=== PATIENT | female | born 2000 | race Hispanic/Latino ===

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

== ENCOUNTER 2022-07-29 15:40 | Emergency (ER) | payer OTHER, MEDICAID, SELFPAY ==
[2022-07-29 16:15] VITALS: BP 131/92; PULSE 106; RESP 20; TEMP 36.1; O2SAT 98; BMI 24.7
[2022-07-29 17:15] LABS: COVID19 -Nasal RAPID Negative (Negative)
[2022-07-29] MEDS: AMOXICILLIN 250 MG CAPSULE 1000 MG PO (19:25)
[2022-07-29] MEDS: KETOROLAC 10 MG TABLET PO (19:25)
[2022-07-29 19:42] VITALS: BP 127/76; PULSE 86; RESP 18; O2SAT 99
--- NOTE | 2022-07-29 20:32 | ED.URI ---
HPI - URI/Sore Throat <JOSH Manrique - Last Filed: 07/29/22 20:37> General Chief Complaint: Upper Respiratory Symptoms Stated Complaint: Sick for the past 3 days, Chest pains, SOB, Dizzy Time Seen by Provider: 07/29/22 18:49 Source: patient Mode of arrival: Family Vehicle History of Present Illness HPI Narrative: This is a 21-year-old female presents to the emergency department with bilateral ear pain, congestion, states that she feels lightheaded and unwell. 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 She denies nausea vomiting. She states that she is had Tylenol for her pain and occasional ibuprofen. Related Data Previous Rx's Medication Instructions Recorded cetirizine 10 mg tablet 10 mg PO DAILY congestion #20 tabs 07/29/22 fluticasone furoate 27.5 2 spray intranasal DAILY PRN nasal 07/29/22 mcg/actuation nasal congestion #5.9 mL spray,suspension Allergies Allergy/AdvReac Type Severity Reaction Status Date / Time No Known Drug Allergies Allergy Verified 07/29/22 16:33 Review of Systems <JOSH Manrique - Last Filed: 07/29/22 20:37> Review of Systems Narrative: Review of systems is negative for acute abnormalities unless otherwise noted in HPI Patient History <JOSH Manrique - Last Filed: 07/29/22 20:37> Medical History Healthy adolescent Social History Smoking Status: Never smoker Smoking Status: Never smoker alcohol intake frequency: 0-2 drinks per day Substance Use Type: does not use Exam <JOSH Manrique - Last Filed: 07/29/22 20:37> Narrative Exam Narrative: Reviewed vitals signs and nursing notes. General: cooperative, comfortable, in no acute distress, well groomed HEENT: symmetrical facial expressions, moist mucous membranes, bilateral TMs are bulging, erythema is present in bilateral upper TMs with mildly opaque fluid behind, no erythema of canal or discharge present in the ear canal. No tenderness with exam. Cardiovascular: regular rate and rhythm, no peripheral edema, warm extremities Respiratory: normal effort, able to speak in complete sentences, without wheezing, stridor, or abnormal breath sounds. No retractions or tachypnea. Breath sounds are clear throughout all ambrose GI: abdomen soft, nontender to palpation, nondistended, without masses, rebound tenderness or exquisite tenderness with exam. MSK: moves all extremities, neurovascularly intact, no weakness, normal tone Skin: brisk capillary refill, without pallor or erythema Neuro: normal speech and cognition, A&O x3, ambulatory, clear speech Psych: mental status is grossly normal, congruent mood, normal affect, pleasant and cooperative Initial Vital Signs Initial Vital Signs: Vital Signs Temperature 97.0 F L 07/29/22 16:15 Pulse Rate 106 H 07/29/22 16:15 Respiratory Rate 20 07/29/22 16:15 Blood Pressure 131/92 H 07/29/22 16:15 Pulse Oximetry 98 07/29/22 16:15 Oxygen Delivery Method 07/29/22 16:15 <Camilla Andrade DO - Last Filed: 08/03/22 07:27> Initial Vital Signs Initial Vital Signs: Vital Signs Temperature 97.0 F L 07/29/22 16:15 Pulse Rate 106 H 07/29/22 16:15 Respiratory Rate 20 07/29/22 16:15 Blood Pressure 131/92 H 07/29/22 16:15 Pulse Oximetry 98 07/29/22 16:15 Oxygen Delivery Method 07/29/22 16:15 Course <JOSH Manrique - Last Filed: 07/29/22 20:37> Orders Ordered: Discontinued Medications Amoxicillin (Amoxicillin 250 Mg Capsule) 1,000 mg PO NOW ONE Stop: 07/29/22 18:56 Last Admin: 07/29/22 19:25 Dose: 1,000 mg Documented By: VERNA Ketorolac Tromethamine (Ketorolac 10 Mg Tablet) 10 mg PO NOW ONE Stop: 07/29/22 18:56 Last Admin: 07/29/22 19:25 Dose: 10 mg Documented By: VERNA Vital Signs Vital signs: Vital Signs - 8 hr 07/29/22 16:15 07/29/22 19:42 Temperature 97.0 F L Pulse Rate 106 H 86 Respiratory Rate 20 18 Blood Pressure 131/92 H 127/76 Pulse Oximetry 98 99 Oxygen Delivery Method Room Air Room Air <Camilla Andrade DO - Last Filed: 08/03/22 07:27> Orders Ordered: Discontinued Medications Amoxicillin (Amoxicillin 250 Mg Capsule) 1,000 mg PO NOW ONE Stop: 07/29/22 18:56 Last Admin: 07/29/22 19:25 Dose: 1,000 mg Documented By: VERNA Ketorolac Tromethamine (Ketorolac 10 Mg Tablet) 10 mg PO NOW ONE Stop: 07/29/22 18:56 Last Admin: 07/29/22 19:25 Dose: 10 mg Documented By: VERNA Vital Signs Vital signs: Vital Signs - 8 hr 07/29/22 16:15 07/29/22 19:42 Temperature 97.0 F L Pulse Rate 106 H 86 Respiratory Rate 20 18 Blood Pressure 131/92 H 127/76 Pulse Oximetry 98 99 Oxygen Delivery Method Room Air Room Air MDM - URI/Sore Throat <JOSH Manrique - Last Filed: 07/29/22 20:37> Lab Data Labs: Lab Results 07/29/22 Range/Units 16:38 SARS-CoV-2 (PCR) Negative (Negative) MDM Narrative Medical decision making narrative: This is a 21-year-old female presents to the emergency department with 3 days of congestion, now with bilateral ear pain, a cough and sore throat. Her COVID PCR was negative, on exam bilateral TMs have erythema in 11:00 to 2:00 region, TMs were bulging with opaque fluid behind TM. This is suspicious for acute otitis media. Differential includes viral upper respiratory infection, eustachian tube dysfunction, serous otitis media. Encourage patient to follow-up with her primary care provider if this does not improve, she was prescribed amoxicillin today for acute otitis media with pain when she chews and open and closes her mouth. She was also given Zyrtec and Flonase to use for her congestion and other symptoms. Patient is appropriate and amenable to discharge home. Vital signs are stable on repeat examination is unremarkable. Patient has been informed of results. Patient has been given strict return to ER precautions for any new or worsening symptoms. Patient understands to follow up closely with outpatient providers as instructed. Patient understands plan and agrees to discharge home. All questions and concerns answered at this time. <Camilla Raymond, DO - Last Filed: 08/03/22 07:27> Lab Data Labs: Lab Results 07/29/22 Range/Units 16:38 SARS-CoV-2 (PCR) Negative (Negative) Discharge Plan Departure Patient Disposition: Home Clinical Impression: Upper respiratory infection Qualifiers: URI type: unspecified URI Qualified Code(s): J06.9 - Acute upper respiratory infection, unspecified Acute otitis media Qualifiers: Otitis media type: serous Laterality: bilateral Recurrence: non-recurrent Qualified Code(s): H65.03 - Acute serous otitis media, bilateral Instructions: Middle Ear Infection, Common Cold Activity Restrictions/Additional Instructions: *You have been diagnosed with acute otitis/middle ear infection which is just starting. Please take this antibiotic twice a day for the next 5 days, please take Tylenol and ibuprofen as needed for your pain, take Zyrtec at nighttime to help you with your congestion. Drink plenty of water, take your medications with food and water, and return to the emergency department for worsening, if you have fever and chills, or if anything gets worse. Your COVID test today was negative. If you have fever and chills and this progresses it is most likely a viral illness which is also causing your ear pain. Please schedule follow-up with your primary care provider if you are not better in a week or if you have any worsening. Thank you for coming in for evaluation I hope you feel better soon. *What to do: *Please continue to take your regular medications as directed. [x] New medication prescriptions sent to your pharmacy: [ [facility]] [ ] New medication written as a paper prescription [ ] No new medications given *Please follow up with your primary care provider in 2-3 days, call for an appointment. Let them know you were seen in the Emergency Department and that we asked that you be seen for follow-up. We will electronically transmit a record of today's note if your PCP is in our system *If you do not have a primary care provider please contact [phone] to establish care with one of the [facility] primary care providers. *Return to Emergency Department if you should have any new, worsening, or concerning symptoms, such as [fever greater than 101F, chills, worsening pain, persistent vomiting or other bothersome symptoms]. Prescriptions: New cetirizine 10 mg tablet 10 mg PO DAILY Qty: 20 0RF fluticasone furoate 27.5 mcg/actuation spray,suspension 2 spray intranasal DAILY PRN (Reason: nasal congestion) Qty: 5.9 0RF Rx Instructions: into each nostril Visit Report Forms: Patient Portal/API <Camilla Andrade DO - Last Filed: 08/03/22 07:27> Cosign ED Attending Cosgeorgeature Attestation: I was immediately available in the department for consultation. Documentation has been reviewed. I agree with assessment and plan.
== END 2022-07-29 19:43 | disposition home or self-care (01) ==
PROVIDERS: Emergency Medicine; Emergency Provider Nurse Practitioner Critical Care Medicine
DX: J06.9 Acute upper respiratory infection, unspecified (principal); H65.03 Acute serous otitis media, bilateral; Z20.822 Contact with and (suspected) exposure to COVID-19
CPT/HCPCS: 87635; 99283; C9803

== ENCOUNTER 2024-02-17 18:58 | Emergency (ER) | payer OTHER, MEDICAID, SELFPAY ==
[2024-02-17 19:01] VITALS: BP 131/76; PULSE 94; RESP 18; TEMP 36.6; O2SAT 100; BMI 27.5
[2024-02-17 19:40] LABS: Strep Grp A by PCR Rapid Negative (Negative)
[2024-02-17 20:00] LABS: Influenza A - CEPHEID Flu A NEGATIVE (NEGATIVE); Influenza B - CEPHEID Flu B NEGATIVE (NEGATIVE); Respiratory Syncytial Virus Negative (Negative)
[2024-02-17 20:05] LABS: COVID-19 CEPHEID 4-PLEX PCR Negative (Negative)
--- NOTE | 2024-02-17 20:13 | DI.RAD.S_ITS ---
PROCEDURE: XR CHEST 1V INDICATIONS: 1 wk cough, fever TECHNIQUE: One view of the chest was acquired. COMPARISON: None. FINDINGS: Surgical changes and devices: None. Lungs and pleura: An incomplete inspiratory result is noted, causing a crowded appearance to the lung markings. No focal infiltrates are seen. Generalized interstitial prominence can be seen. No pneumothorax or significant pleural effusions are seen. Mediastinum: Mediastinal contours appear normal. Heart size is normal. Bones and chest wall: No suspicious bony lesions. Overlying soft tissues appear unremarkable. IMPRESSION: Low lung volumes with generalized interstitial prominence can be seen. Please consider atypical infiltrate versus artifact. Pulmonary edema is possible, yet considered to be less likely. Dictated by: Sang Tidwell M.D. on 02/17/2024 at 19:39 Approved by: Sang Tidwell M.D. on 02/17/2024 at 19:39
--- NOTE | 2024-02-17 20:57 | ED.URI ---
HPI - URI/Sore Throat General Chief Complaint: Upper Respiratory Symptoms Stated Complaint: cough T-7/fever and chills/lt ear inf Time Seen by Provider: 02/17/24 20:13 Source: patient Mode of arrival: Ambulatory History of Present Illness HPI Narrative: 23yoF presents for nonproductive cough x 7 days. Reports associated fevers and chills, no measured temperature at home. Symptoms began with left ear pain, hwoever patient has not had ear pain in several days. Patient states she coughs so hard she sometimes vomits. Has tried OTC cough medications without significant relief. Denies chest pain or shortness of breath. Related Data Previous Rx's Medication Instructions Recorded cetirizine 10 mg tablet 10 mg PO DAILY congestion #20 tabs 07/29/22 fluticasone furoate 27.5 2 spray intranasal DAILY PRN nasal 07/29/22 mcg/actuation nasal congestion #5.9 mL spray,suspension benzonatate 200 mg capsule 200 mg PO BID-TID PRN cough #30 02/17/24 caps Allergies Allergy/AdvReac Type Severity Reaction Status Date / Time No Known Drug Allergies Allergy Verified 07/29/22 16:33 Review of Systems Review of Systems Narrative: Negative except as noted above Patient History Medical History Healthy adolescent Social History Smoking Status: Never smoker Smoking Status: Never smoker alcohol intake frequency: 0-2 drinks per day Substance Use Type: does not use Exam Initial Vital Signs Initial Vital Signs: Vital Signs Temperature 98 F 02/17/24 19:01 Pulse Rate 94 H 02/17/24 19:01 Respiratory Rate 18 02/17/24 19:01 Blood Pressure 131/76 02/17/24 19:01 Pulse Oximetry 100 02/17/24 19:01 Oxygen Delivery Method Room Air 02/17/24 19:01 Const: Awake, alert, no acute distress, nontoxic appearing Cardiac: regular rate, regular rhythm RESP: unlabored, clear bilaterally, no wheezing Skin: Warm, Dry, intact, no rashes Neuro: AO x3, CN II-XII grossly intact, moves all extremities Course Orders Ordered: Discontinued Medications Benzonatate (Benzonatate 100 Mg Capsule) 200 mg PO NOW ONE Stop: 02/17/24 20:59 Last Admin: 02/17/24 21:06 Dose: 200 mg Documented By: AKOSUA Dexamethasone (Dexamethasone 10 Mg/Ml Vial) 10 mg PO NOW ONE Stop: 02/17/24 20:59 Last Admin: 02/17/24 21:06 Dose: 10 mg Documented By: AKOSUA Vital Signs Vital signs: Vital Signs - 8 hr 02/17/24 19:01 Temperature 98 F Pulse Rate 94 H Respiratory Rate 18 Blood Pressure 131/76 Pulse Oximetry 100 Oxygen Delivery Method Room Air MDM - URI/Sore Throat Differential Diagnosis Differential diagnosis: Likely upper respiratory infection, croup and otitis media Lab Data Labs: Lab Results 02/17/24 Range/Units 19:10 SARS-CoV-2 (PCR) Negative (Negative) Influenza A (RT-PCR) Flu a negative (NEGATIVE) Influenza B (RT-PCR) Flu b negative (NEGATIVE) RSV (PCR) Negative (Negative) Group A Strep (PCR) Negative (Negative) Imaging Data Chest x-ray: Radiologist's Impression: PROCEDURE: XR CHEST 1V INDICATIONS: 1 wk cough, fever TECHNIQUE: One view of the chest was acquired. COMPARISON: None. FINDINGS: Surgical changes and devices: None. Lungs and pleura: An incomplete inspiratory result is noted, causing a crowded appearance to the lung markings. No focal infiltrates are seen. Generalized interstitial prominence can be seen. No pneumothorax or significant pleural effusions are seen. Mediastinum: Mediastinal contours appear normal. Heart size is normal. Bones and chest wall: No suspicious bony lesions. Overlying soft tissues appear unremarkable. IMPRESSION: Low lung volumes with generalized interstitial prominence can be seen. Please consider atypical infiltrate versus artifact. Pulmonary edema is possible, yet considered to be less likely. Dictated by: Sang Tidwell M.D. on 02/17/2024 at 19:39 Approved by: Sang Tidwell M.D. on 02/17/2024 at 19:39 [facility] Narrative Medical decision making narrative: Well-appearing patient with persistent cough after viral symptoms. Likely bronchitis. Lungs are clear to auscultation bilaterally, patient states her primary concern is her persistent cough. Flu, COVID, RSV negative. Chest x-ray read as ?low lung volumes with generalized interstitial prominence. Please consider atypical infiltrate versus artifact?. Patient is afebrile, lungs are clear bilaterally, suspect secondary to poor inspiratory effort. Low suspicion for bacterial process at this time. Patient given dose of Decadron and discharged with Silvana Nelson. Patient requested a note for work, which was provided. Discharge Plan Departure Patient Disposition: Home Clinical Impression: Bronchitis Instructions: DI for Acute Bronchitis Activity Restrictions/Additional Instructions: Drink plenty of fluids, get rest, and take the prescribed cough medications as needed for symptoms. Your lungs today are clear when I listen to them. Unfortunately there is no quick fix for bronchitis Prescriptions: New benzonatate 200 mg capsule 200 mg PO BID-TID PRN (Reason: cough) Qty: 30 0RF No Action cetirizine 10 mg tablet 10 mg PO DAILY Qty: 20 0RF fluticasone furoate 27.5 mcg/actuation spray,suspension 2 spray intranasal DAILY PRN (Reason: nasal congestion) Qty: 5.9 0RF Rx Instructions: into each nostril Stand Alone Forms: Patient Portal/API, Work Release Note
[2024-02-17] MEDS: BENZONATATE 100 MG CAPSULE 200 MG PO (21:06)
[2024-02-17] MEDS: DEXAMETHASONE 10 MG/ML VIAL PO (21:06)
[2024-02-17 21:14] VITALS: BP 124/72; PULSE 74; RESP 18; TEMP 36.5; O2SAT 99
== END 2024-02-17 21:15 | disposition home or self-care (01) ==
PROVIDERS: Emergency Provider Emergency Medicine
DX: J20.9 Acute bronchitis, unspecified (principal); Z20.822 Contact with and (suspected) exposure to COVID-19
CPT/HCPCS: 0241U; 71045; 87070; 87651; 99283; J1100

== ENCOUNTER 2024-05-14 19:51 | Emergency (ER) | payer OTHER, MEDICAID, SELFPAY ==
[2024-05-14] VITALS (7 sets, daily range): BP systolic 112–139; BP diastolic 64–81; PULSE 98–109; RESP 20; TEMP 36.4; O2SAT 98–100; BMI 26.7
--- NOTE | 2024-05-14 20:31 | DI.US.S_ITS ---
PROCEDURE: US PELVIC COMPLETE INDICATIONS: SPOTTING Positive test TECHNIQUE: Real-time scanning was performed of the pelvic organs, with image documentation. Additional endovaginal scanning was necessary due to incomplete visualization of the adnexal and endometrial structures by transabdominal scanning. COMPARISON: None. FINDINGS: Uterus: 5.3 x 3.3 x 3.8 cm. 8 mm endometrium. No intrauterine gestational sac is identified. Ovaries: Nonenlarged ovaries measuring 6 cc on the right and 8 cc on the left. Suspected 2.6 x 1.8 cm left corpus luteum. Other: Small amount of likely physiologic free fluid IMPRESSION: of unknown location. No intrauterine gestational sac is seen. Recommend clinical, laboratory and imaging follow-up in 14 days or sooner. Dictated by: Lewis Landers M.D. on 05/14/2024 at 21:56 Approved by: Lewis Landers M.D. on 05/14/2024 at 21:57
[2024-05-14 22:23] LABS: Add Manual Diff / Slide Review NO; Basophils Absolute Auto 100 /uL (0-100); Basophils Percent Auto 0.4 % (0-2); Eosinophils Absolute Auto 100 /uL (0-450); Eosinophils Percent Auto 0.9 % (2-4); Hematocrit 37.7 % (36-46); Hemoglobin 12.7 g/dL (12.0-16.0); Lymphocytes Absolute Auto 4200 /uL (1100-4500); Lymphocytes Percent Auto 31.8 % (25-40); Mean Corpuscular HGB Conc 33.8 % (30-36); Mean Corpuscular Hemoglobin 30.1 PG (26-34); Mean Corpuscular Volume 89.1 fL (80-100); Monocytes Absolute Auto 600 /uL (0-900); Monocytes Percent Auto 4.9 % (3-14); Neutrophils Absolute Auto 8200 /uL (1500-7000); Platelet Count 313 X10^3/uL (150-400); Red Blood Cell Count 4.23 X10^6/uL (4.0-5.2); Red Cell Distribution Width 13.3 % (11.6-14.8); White Blood Cell Count 13.2 X10^3/uL (4.5-11.0)
[2024-05-14 22:33] LABS: Alanine Aminotransferase 24 IU/L (<35); Albumin Globulin Ratio 1.4 (1.0-2.8); Alkaline Phosphatase 68 U/L (38-126); Aspartate Aminotransferase 25 IU/L (14-36); BUN Creatinine Ratio 25.9 (6-22); Blood Urea Nitrogen 14 mg/dL (7-17); Calcium 9.4 mg/dL (8.4-10.2); Carbon Dioxide 22 mmol/L (22-32); Chloride 105 mmol/L (98-107); Estimated Glomerular Filt Rate > 60 mL/min (>60); Globulin 3.6 g/dL (1.7-4.1); Glucose 89 mg/dL (70-100); HEMOLYSIS < 15 (0-50); Potassium 3.7 mmol/L (3.4-5.1); Sodium 138 mmol/L (137-145); Total Protein 8.6 g/dL (6.3-8.2)
[2024-05-14 22:50] LABS: HCG Quantitative /Beta subunit 279.96 mIU/mL
[2024-05-15] VITALS: BP 116/72; PULSE 98; O2SAT 100
[2024-05-15 00:30] VITALS: BP 117/70; PULSE 101; O2SAT 98
[2024-05-15 01:00] VITALS: BP 116/67; PULSE 101; O2SAT 99
--- NOTE | 2024-05-15 01:26 | ED.FEMALEGU ---
HPI - Female Genitourinary General Chief complaint: Vaginal Bleeding Stated complaint: just found out /spotting/wks unknown Time Seen by Provider: 05/14/24 20:31 Source: patient Mode of arrival: Ambulatory History of Present Illness HPI Narrative: Patient is a 23-year-old female presenting today with new test yesterday and some vaginal spotting. Say she reports that she is having some increased cramping and spotting when she wipes. She does not have excessive bleeding. He reports that her last menstrual cycle was about March 31 but she was late in March as well. She has not currently on control, not intentionally trying to get . No significant nausea or vomiting. She does have a primary care provider [facility] Related Data Previous Rx's Medication Instructions Recorded cetirizine 10 mg tablet 10 mg PO DAILY congestion #20 tabs 07/29/22 fluticasone furoate 27.5 2 spray intranasal DAILY PRN nasal 07/29/22 mcg/actuation nasal congestion #5.9 mL spray,suspension benzonatate 200 mg capsule 200 mg PO BID-TID PRN cough #30 02/17/24 caps Allergies Allergy/AdvReac Type Severity Reaction Status Date / Time No Known Drug Allergies Allergy Verified 07/29/22 16:33 Patient History Medical History Healthy adolescent alcohol intake frequency: 0-2 drinks per day Substance Use Type: does not use Exam Initial Vital Signs Initial Vital Signs: Vital Signs Temperature 97.6 F 05/14/24 20:11 Pulse Rate 98 H 05/14/24 20:11 Respiratory Rate 20 05/14/24 20:11 Blood Pressure 139/81 05/14/24 20:11 Pulse Oximetry 100 05/14/24 20:11 Oxygen Delivery Method Room Air 05/14/24 20:11 GENERAL: Alert well-appearing 23-year-old female and in no acute distress. HEENT: Head atraumatic,EOMI, pupils reactive, face symmetric, moist mucous membranes CARDIOVASCULAR: Regular rate and rhythm without murmurs, rubs or gallops. RESPIRATORY: Breath sounds equal bilaterally, no wheezes rales or rhonchi. ABDOMEN: Soft, minimal tenderness lower abdominal area no significant tenderness on right or left side no distention guarding or rebound no localization pain EXTREMITIES: Normal range of motion, no clubbing or edema. Neurovascularly intact NEUROLOGICAL: Alert and oriented x4. SKIN: Warm, dry, no laceration, no petechiae, no rashes or lesions. Course Orders Ordered: ED Orders 05/14/24 22:20 ABO RH Type Stat CBC Auto Diff [Complete Blood Count AUTO DIFF] Stat CMP [Comprehensive Metabolic Panel] Stat HCG Quantitative /Beta subunit Stat Discontinued Medications Acetaminophen (Acetaminophen 325 Mg Tablet) 975 mg PO NOW ONE Stop: 05/15/24 01:40 Last Admin: 05/15/24 01:43 Dose: 975 mg Documented By: AB Vital Signs Vital signs: Vital Signs - 8 hr 05/14/24 22:30 05/14/24 23:00 05/14/24 23:20 Pulse Rate 109 H 103 H 104 H Blood Pressure Pulse Oximetry 100 99 99 05/14/24 23:20 05/14/24 23:30 05/14/24 23:30 Pulse Rate 104 H Blood Pressure 125/73 112/64 Pulse Oximetry 98 05/15/24 00:00 05/15/24 00:00 05/15/24 00:30 Pulse Rate 98 H 101 H Blood Pressure 116/72 Pulse Oximetry 100 98 05/15/24 00:30 05/15/24 01:00 05/15/24 01:00 Pulse Rate 101 H Blood Pressure 117/70 116/67 Pulse Oximetry 99 05/15/24 01:30 05/15/24 01:30 Pulse Rate 111 H Blood Pressure 139/87 Pulse Oximetry 98 MDM - Female Genitourinary Lab Data 05/14/24 22:20 05/14/24 22:20 Labs: Lab Results 05/14/24 Range/Units 22:20 WBC 13.2 H (4.5-11.0) X10^3/uL RBC 4.23 (4.0-5.2) X10^6/uL Hgb 12.7 (12.0-16.0) g/dL Hct 37.7 (36-46) % MCV 89.1 (80-100) fL MCH 30.1 (26-34) PG MCHC 33.8 (30-36) % RDW 13.3 (11.6-14.8) % Plt Count 313 (150-400) X10^3/uL Neut % (Auto) 62.0 (50-75) % Lymph % (Auto) 31.8 (25-40) % [place] % (Auto) 4.9 (3-14) % Eos % (Auto) 0.9 L (2-4) % Baso % (Auto) 0.4 (0-2) % Neut # (Auto) 8200 H (1264-1210) /uL Lymph # (Auto) 4200 (5972-5554) /uL Johnston # (Auto) 600 (0-900) /uL Eos # (Auto) 100 (0-450) /uL Baso # (Auto) 100 (0-100) /uL Sodium 138 (137-145) mmol/L Potassium 3.7 (3.4-5.1) mmol/L Chloride 105 (98-107) mmol/L Carbon Dioxide 22 (22-32) mmol/L BUN 14 (7-17) mg/dL Creatinine 0.54 (0.52-1.04) mg/dL Estimated GFR > 60 (>60) mL/min BUN/Creatinine Ratio 25.9 H (6-22) Glucose 89 (70-100) mg/dL Calcium 9.4 (8.4-10.2) mg/dL Total Bilirubin 1.0 (0.2-1.3) mg/dL AST 25 (14-36) IU/L ALT 24 (<35) IU/L Alkaline Phosphatase 68 (38-126) U/L Total Protein 8.6 H (6.3-8.2) g/dL Albumin 5.0 (3.5-5.0) g/dL Globulin 3.6 (1.7-4.1) g/dL Albumin/Globulin Ratio 1.4 (1.0-2.8) HCG, Quant 279.96 mIU/mL Blood Type A Positive Point of Care Testing Test Results Positive Urine Dip Bedside Urine Glucose Negative Bedside Urine Bilirubin - Negative Bedside Urine Ketone - Negative Urine Specific [place] 1.005 Bedside Urine Occult Blood - Negative Bedside Urine pH 7.0 Bedside Urine Protein - Negative Bedside Urine Urobilinogen - Negative Bedside Urine Nitrite - Negative Bedside Urine Leukocytes - Negative Esterase Imaging Data US - OB: Radiologist's Impression: PROCEDURE: US PELVIC COMPLETE INDICATIONS: SPOTTING Positive test TECHNIQUE: Real-time scanning was performed of the pelvic organs, with image documentation. Additional endovaginal scanning was necessary due to incomplete visualization of the adnexal and endometrial structures by transabdominal scanning. COMPARISON: None. FINDINGS: Uterus: 5.3 x 3.3 x 3.8 cm. 8 mm endometrium. No intrauterine gestational sac is identified. Ovaries: Nonenlarged ovaries measuring 6 cc on the right and 8 cc on the left. Suspected 2.6 x 1.8 cm left corpus luteum. Other: Small amount of likely physiologic free fluid IMPRESSION: of unknown location. No intrauterine gestational sac is seen. Recommend clinical, laboratory and imaging follow-up in 14 days or sooner. Dictated by: Lewis Landers M.D. on 05/14/2024 at 21:56 MDM Narrative Medical decision making narrative: Patient 23-year-old female presenting today with known and vaginal spotting. She is positive for with an hCG of 279. However ultrasound does not show an IUP but also no evidence of ectopic or extra uterine at this time either. I suspect early versus miscarriage. HCG is quite low. She has a regular primary care physician recommend 48 hour repeat hCG level. No evidence of UTI other blood work has been reviewed and overall reassuring. She is blood type A positive no need for RhoGAM Blood work reviewed WBC 13.2 consistent with Urinalysis does not show evidence of UTI Ultrasound reviewed Discharge Plan Departure Patient Disposition: Home Clinical Impression: Threatened Instructions: Threatened Miscarriage Activity Restrictions/Additional Instructions: HCG today= 279 Blood type A positive *You have been diagnosed with threatened miscarriage *What to do: You need to have HCG retested in 48 hours to see if it is going up or down. You may also require repeat ultrasound in about 14 days depending on blood test. Do suspect that you may be having a miscarriage. You may experience increased cramping and heavy bleeding. *Continue to take medications as directed Tylenol 1000 mg every 6 hours for [id number] pain *Follow up with your primary care provider in 2-3 days or call [phone] Please call your PCP for repeat blood work, when you call to make an appointment to them that you need blood work HCG on 05/16/24 *Return to ER if you should have increased vaginal bleeding more than 2 super pads in 1 hour dizziness lightheadedness increasing pain or any new, worsening or concerning symptoms Prescriptions: No Action benzonatate 200 mg capsule 200 mg PO BID-TID PRN (Reason: cough) Qty: 30 0RF cetirizine 10 mg tablet 10 mg PO DAILY Qty: 20 0RF fluticasone furoate 27.5 mcg/actuation spray,suspension 2 spray intranasal DAILY PRN (Reason: nasal congestion) Qty: 5.9 0RF Rx Instructions: into each nostril Stand Alone Forms: Patient Portal/API
[2024-05-15 01:30] VITALS: BP 139/87; PULSE 111; O2SAT 98
[2024-05-15] MEDS: ACETAMINOPHEN 325 MG TABLET 975 MG PO (01:43)
== END 2024-05-15 01:54 | disposition home or self-care (01) ==
PROVIDERS: Emergency Provider Emergency Medicine
DX: O20.0 Threatened abortion (principal)
CPT/HCPCS: 36415; 76830; 76856; 80053; 81003; 81025; 84702; 85025; 86900; 86901; 99284